=== PATIENT | female | born 1970 | race Caucasian/White ===

== ENCOUNTER 2017-11-28 08:43 | Emergency (ER) | payer BC ==
[~2017-11-28] VITALS: Ht 165.1 cm; Wt 61.2 kg
[~2017-11-28 08:43] MED LIST: ALBU17I INH; TUSSSUS PO; TYLE3 PO; Z.0.BCPILL PO; ZITH500T PO
[2017-11-28 08:48] VITALS: BP 147/70; PULSE 86; RESP 16; TEMP 100; O2SAT 98
[2017-11-28] MEDS ORDERED: TRAM50TA PO (09:00)
[2017-11-28] MEDS ORDERED: [UNRECOGNIZED DRUG - OTHER] (09:00)
[2017-11-28] MEDS ORDERED: TIZA2CAP3 PO (09:00)
[2017-11-28] MEDS ORDERED: HYDROCODONE (09:00)
[2017-11-28] MEDS ORDERED: GABA300C5 PO (09:00)
[2017-11-28] MEDS ORDERED: ACETAMINOPHEN (09:00)
--- NOTE | 2017-11-28 09:02 | PD ---
HPI Chief Complaint: Cold / Flu Symptoms Time Seen by Provider: 08:51 Travel History International Travel<30 days: No Contact w/Intl Traveler<30days: No Traveled to known affect area: No History of Present Illness HPI This is a 47-year-old female presents to the ER complaining of flulike symptoms. Symptoms including cough productive of yellow sputum, fever at home, body aches, sore throat and difficulty swallowing. Patient states that it hurts when she coughs although she denies any chest pain or sweating. Patient denies any recent travel although reports that her kids are sick at home but she is unsure what the have. Denies any nausea vomiting diarrhea or abdominal pain. PFSH Past Medical History Diabetes: No Diminished Hearing: No Tetanus Vaccination: Unknown ?: Not Past Surgical History Gynecologic Surgery: Yes (breast implants 05) Other Surgery: Yes (spleenectomy) Social History Alcohol Use: Yes (1 glass wine per wk) Tobacco Use: No Substance Use: No Allergies-Medications (Allergen,Severity, Reaction): Coded Allergies: No Known Allergies (Verified Allergy, Mild, 11/28/17) Reported Meds & Prescriptions Reported Meds & Active Scripts Active Reported Tizanidine (Tizanidine HCl) 2 Mg Cap 2 Mg PO TID Tramadol (Tramadol HCl) 50 Mg Tab 50 Mg PO DAILY PRN [Lortab - Acetaminop] Gabapentin 300 Mg Cap 300 Mg PO HS Review of Systems Except as stated in HPI: all other systems reviewed are Neg Physical Exam Narrative GENERAL: Alert oriented 3 no acute distress. SKIN: Focused skin assessment warm/dry. HEAD: Atraumatic. Normocephalic. EYES: Pupils equal and round. No scleral icterus. No injection or drainage. ENT: No nasal bleeding or discharge. Mucous membranes pink and moist. NECK: Trachea midline. No JVD. CARDIOVASCULAR: Regular rate and rhythm. No murmur appreciated. RESPIRATORY: No accessory muscle use. Clear to auscultation. Breath sounds equal bilaterally. GASTROINTESTINAL: Abdomen soft, non-tender, nondistended. Hepatic and splenic margins not palpable. MUSCULOSKELETAL: No obvious deformities. No clubbing. No cyanosis. No edema. NEUROLOGICAL: Awake and alert. No obvious cranial nerve deficits. Motor grossly within normal limits. Normal speech. PSYCHIATRIC: Appropriate mood and affect; insight and judgment normal. Data Data Last Documented VS Vital Signs Date Time Temp Pulse Resp B/P (MAP) Pulse Ox O2 Delivery O2 Flow Rate FiO2 11/28/17 08:52 16 98 Room Air 11/28/17 08:48 100.0 86 147/70 (95) Orders Orders Chest, Pa & Lat (11/28/17 ) Group A Rapid Strep Screen (11/28/17 08:56) Influenzae A/B Antigen (11/28/17 08:56) Strep Culture (Group A) (11/28/17 09:00) MDM Medical Decision Making Medical Screen Exam Complete: Yes Emergency Medical Condition: Yes Differential Diagnosis Bronchitis, pharyngitis, URI. Narrative Course This is a 47-year-old female who presents the ER complaining of URI like symptoms cough for the last 2 weeks. Mild rhonchi on the physical exam although x-ray shows no infiltrate. I believe this patient will benefit from a course of antibiotics and that she can follow-up with her primary care physician. Diagnosis Primary Impression: Bronchitis Additional Instructions: Follow-up with primary care physician, return to ER if symptoms change or do not improve. Scripts Azithromycin (Zithromax Z-Khoi) 250 Mg Dspk 250 MG PO DIRECTED for Infection, #1 DSPK 0 Refills 500 MG (2 tabs) day 1, then 1 tab days 2-5. Prov: Connor Gamble MD 11/28/17 Disposition: 01 DISCHARGE HOME Condition: Stable Connor Gamble MD Nov 28, 2017 09:02
--- NOTE | 2017-11-28 09:38 | RADRPT ---
EXAM DATE/TIME: 11/28/2017 09:22 [facility] COMPARISON: No previous studies available for comparison. INDICATIONS : Cough MEDICAL HISTORY : None. SURGICAL HISTORY : Splenectomy. Breast implants ENCOUNTER: Initial ACUITY: 1 week PAIN SCORE: 0/10 LOCATION: Bilateral chest FINDINGS: PA and lateral views of the chest demonstrate the lungs to be symmetrically aerated without evidence of mass, infiltrate or effusion. The cardiomediastinal contours are unremarkable. 40 thoracolumbar scoliosis. CONCLUSION: No acute disease. Corey Jackson MD FACR on November 28, 2017 at 9:35 Board Certified Radiologist. This report was verified electronically.
[2017-11-28] MEDS ORDERED: ZITHTAB PO (09:47)
== END 2017-11-28 09:54 | disposition home or self-care (01) ==
LOC: PHEFT 08:43
DX: J40 Bronchitis, not specified as acute or chronic (principal)
CPT/HCPCS: 71046; 87081; 87804; 87880; 99284